=== PATIENT | female | born 1980 | race Caucasian/White ===

== ENCOUNTER 2016-12-11 21:49 | Emergency (ER) | payer OTHER ==
[2016-12-11] MEDS ORDERED: Nitrofurantoin Macrocrystals* 50 MG CAP PO ONE (21:59)
--- NOTE | 2016-12-11 21:59 | UC ---
Complaint Female HPI - HPI Summary HPI Summary: 36 year old female presents with complains of frequent urination, urgency, and burning. - History Of Current Complaint Chief Complaint: UCGU Stated Complaint: POSS UTI Time Seen by Provider: 12/11/16 21:57 - Allergies/Home Medications Allergies/Adverse Reactions: Allergies Allergy/AdvReac Type Severity Reaction Status Date / Time Loratadine [From Claritin] Allergy Hives Verified 12/11/16 21:55 Home Medications: Home Medications Bupropion XL* [Wellbutrin XL *] 150 mg PO DAILY 12/11/16 [History Confirmed ] Vitamin [Calna] 1 tab PO 12/11/16 [History] PMH/Surg Hx/FS Hx/Imm Hx - Surgical History Surgical History: None - Social History Alcohol Use: None Substance Use Type: None Smoking Status (MU): Never Smoked Tobacco Review of Systems Constitutional: Negative Skin: Negative Eyes: Negative ENT: Negative Respiratory: Negative Cardiovascular: Negative Gastrointestinal: Negative Genitourinary: Dysuria, Frequency, Urgency Motor: Negative Neurovascular: Negative Musculoskeletal: Negative Neurological: Negative Psychological: Negative All Other Systems Reviewed And Are Negative: Yes Physical Exam Triage Information Reviewed: Yes Vital Signs: Initial Vital Signs Temp 37.2 C 12/11/16 21:52 Pulse 72 12/11/16 21:52 Resp 18 12/11/16 21:52 BP 104/60 12/11/16 21:52 Pulse Ox 100 12/11/16 21:52 Eye Exam: Normal ENT Exam: Normal Dental Exam: Normal Neck exam: Normal Neck: Positive: 1 Respiratory Exam: Normal Cardiovascular Exam: Normal Abdominal Exam: Normal Musculoskeletal Exam: Normal Neurological Exam: Normal Psychological Exam: Normal Skin Exam: Normal Complaint Female Dx - Differential Dx/Diagnosis Provider Diagnoses: urinary frequency. dysuria Discharge - Discharge Plan Condition: Stable Disposition: HOME Prescriptions: Nitrofurantoin Monohyd Macro [Macrobid] 100 mg PO BID #14 cap Patient Education Materials: Urinary Tract Infection in Women (ED), Urinary Tract Infection in (ED) Referrals: Bonny Mcpherson MD [Primary Care Provider] - If Needed
[2016-12-11 22:05] VITALS: BP 104/60
== END 2016-12-11 22:13 | disposition home or self-care (01) ==
LOC: UCEAST 21:49
DX: R35.0 Frequency of micturition (principal); R30.0 Dysuria
CPT/HCPCS: 81003; 87077; 87086; 87186; 99212; A9270-GY; G0463

== ENCOUNTER 2017-01-24 20:27 | Emergency (ER) | payer OTHER ==
[2017-01-24 20:34] VITALS: BP 105/70
[2017-01-24] MEDS ORDERED: Nitrofurantoin Macrocrystals* 50 MG CAP PO ONE (21:07)
--- NOTE | 2017-01-26 17:52 | UC ---
Progress - Progress Note Progress Note: CALL PATIENT. CX (+) FOR ENTEROCOCCUS FAECALIS. CX PENDING. CONTINUE ABX. IF WORSE ER.
--- NOTE | 2017-02-04 20:35 | UC ---
Complaint Female HPI - HPI Summary HPI Summary: 36 YEAR OLD PRESENTS WITH BURNING WITH URINATION. - History Of Current Complaint Chief Complaint: UCGU Stated Complaint: UTI COMPLAINT Time Seen by Provider: 01/24/17 20:30 Hx Obtained From: Patient ?: Yes Onset/Duration: Sudden Onset Severity Initially: Moderate Severity Currently: Moderate Pain Intensity: 3 Pain Scale Used: 0-10 Numeric - 6 - Allergies/Home Medications Allergies/Adverse Reactions: Allergies Allergy/AdvReac Type Severity Reaction Status Date / Time Loratadine [From Claritin] Allergy Hives Verified 12/11/16 21:55 PMH/Surg Hx/FS Hx/Imm Hx Previously Healthy: Yes - Surgical History Surgical History: None - Social History Alcohol Use: None Substance Use Type: None Smoking Status (MU): Never Smoked Tobacco Review of Systems Constitutional: Negative Skin: Negative Eyes: Negative ENT: Negative Respiratory: Negative Cardiovascular: Negative Gastrointestinal: Negative Genitourinary: Frequency, Urgency Motor: Negative Neurovascular: Negative Musculoskeletal: Negative Neurological: Negative Psychological: Negative All Other Systems Reviewed And Are Negative: Yes Physical Exam Triage Information Reviewed: Yes Vital Signs: Initial Vital Signs Temp 37.3 C 01/24/17 20:30 Pulse 73 01/24/17 20:30 Resp 12 01/24/17 20:30 BP 105/70 01/24/17 20:30 Pulse Ox 100 01/24/17 20:30 Eye Exam: Normal ENT Exam: Normal Dental Exam: Normal Neck exam: Normal Neck: Positive: 1 Respiratory Exam: Normal Cardiovascular Exam: Normal Abdominal Exam: Normal Musculoskeletal Exam: Normal Neurological Exam: Normal Psychological Exam: Normal Skin Exam: Normal Complaint Female Dx - Differential Dx/Diagnosis Provider Diagnoses: BURNING WITH URINATION. URGENCY AND FREQUENCY OF URINATION Discharge - Discharge Plan Condition: Stable Disposition: HOME Prescriptions: Nitrofurantoin Monohyd Macro [Macrobid] 100 mg PO BID #14 cap Patient Education Materials: Urinary Tract Infection in Women (ED) Referrals: Bonny Mcpherson MD [Primary Care Provider] -
== END 2017-01-24 21:25 | disposition home or self-care (01) ==
LOC: UCEAST 20:27
DX: R30.0 Dysuria (principal); R39.15 Urgency of urination; R35.0 Frequency of micturition; Z32.01 Encounter for pregnancy test, result positive; Z88.8 Allergy status to other drugs, medicaments and biological substances
CPT/HCPCS: 81003; 84702; 87077; 87086; 87186; 99212; A9270-GY; G0463

== ENCOUNTER 2017-07-24 19:33 | Inpatient (IN) | payer OTHER ==
[2017-07-24 21:55] LABS: ABS Basophils 0.1 10^3/ul (0-0.2); ABS Eosinophils 0.1 10^3/ul (0-0.6); ABS Lymphocytes 2.6 10^3/ul (1.0-4.8); ABS Monocytes 0.9 10^3/ul (0-0.8); ABS Neutrophils 9.7 10^3/ul (1.5-7.7); ABS Nucleated RBC 0 10^3/ul; Hematocrit 43 % (35-47); Lymphocyte % 19.5 % (25-47); Mean Corpuscular HGB Conc 35 g/dl (31-36); Mean Corpuscular Hemoglobin 31 pg (27-31); Mean Corpuscular Volume 88 fL (80-97); Mean Platelet Volume 10 um3 (7.4-10.4); Nucleated Red Blood Cells % 0; Platelet Count 167 10^3/ul (150-450); Red Blood Count 4.86 10^6/ul (4.0-5.4); Red Cell Distribution Width 13 % (10.5-15); White Blood Count 13.5 10^3/ul (3.5-10.8)
[2017-07-24 22:14] LABS: EGFR Non-African American 112.3 (>60); Uric Acid 4.4 mg/dL (2.3-6.6)
[2017-07-24 22:32] LABS: Urine Appearance Clear; Urine Blood 2+ (Negative); Urine Color Straw; Urine Ketones Negative (Negative); Urine Protein Negative (Negative); Urine Specific Gravity 1.004 (1.010-1.030); Urine Urobilinogen Negative (Negative)
--- NOTE | 2017-07-24 23:49 | HP ---
General Information - General Information Maternal Age: 36 Grav: 1 Para: 0 SAB: 0 IEA: 0 Estimated Due Date: 08/08/17 Gestational Age in Weeks and Days: 37 Weeks and 6 Days Maternal Blood Type and Rh: AB Positive - Results this Serology/RPR Result: Non-Reactive Rubella Result: Immune HBsAg Result: Negative HIV Result: Negative GBS Culture Result: Negative Past Medical History Delivery History: See Records Pertinent Past Medical History: See Records Past Medical History Comment: Hx of depression currently on Wellbutrin. Hx of asthma. No current medication mgmt needed Pertinent Past Surgical History: None Pertinent Family History: See Records Family History Comment: HTN, heart disease, high cholesterol - Antepartal Records Antepartal Records: Reviewed, Uncomplicated - lives in [facility]. Pt traveled there during . Plans to return around 6-8 weeks post delivery Review of Systems Constitutional: Uncomfortable - with UCs CV Complaint: No Respiratory: Shortness of Breath: No Gastrointestinal: No Nausea/Vomiting, Normal Bowel Movement Genitourinary: Bleeding - +Bloody show for the past 2 days. Slightly more with regular UCs this AM, No Dysuria, No Leaking Fluid Musculoskeletal: Contractions Neurological: No Headache, No Visual Changes Movement: Normal Exam Allergies/Adverse Reactions: Allergies loratadine Allergy (Verified 07/24/17 23:23) Hives BP on arrival: 131/93. Repeats: 143/94 and 118/77 HR 69 Temp 98.9 RR 19 Lab Values - Entire Visit: Laboratory Tests 07/24/17 07/24/17 07/24/17 21:45 21:45 21:45 WBC 13.5 H RBC 4.86 Hgb 15.0 Hct 43 MCV 88 MCH 31 MCHC 35 RDW 13 Plt Count 167 MPV 10 Neut % (Auto) 72.1 Lymph % (Auto) 19.5 L [place] % (Auto) 6.6 Eos % (Auto) 1.0 Baso % (Auto) 0.8 Absolute Neuts (auto) 9.7 H Absolute Lymphs (auto) 2.6 Absolute Monos (auto) 0.9 H Absolute Eos (auto) 0.1 Absolute Basos (auto) 0.1 Absolute Nucleated RBC 0 Nucleated RBC % 0 Sodium 133 Potassium 3.8 Chloride 103 Carbon Dioxide 22 Anion Gap 8 BUN 9 Creatinine 0.61 Est GFR ( Amer) 144.4 Est GFR (Non-Af Amer) 112.3 BUN/Creatinine Ratio 14.8 Glucose 87 Uric Acid 4.4 Calcium 9.4 Total Bilirubin 0.40 AST 21 ALT 14 Alkaline Phosphatase 176 H Total Protein 6.9 Albumin 3.6 Globulin 3.3 Albumin/Globulin Ratio 1.1 Urine Color Urine Appearance Urine pH Ur Specific [place] Urine Protein Urine Ketones Urine Blood Urine Nitrate Urine Bilirubin Urine Urobilinogen Ur Leukocyte Esterase Urine WBC (Auto) Urine RBC (Auto) Ur Squamous Epith Cells Urine Bacteria Urine Glucose Blood Type AB Positive Antibody Screen Negative 07/24/17 22:10 WBC RBC Hgb Hct MCV MCH MCHC RDW Plt Count MPV Neut % (Auto) Lymph % (Auto) [place] % (Auto) Eos % (Auto) Baso % (Auto) Absolute Neuts (auto) Absolute Lymphs (auto) Absolute Monos (auto) Absolute Eos (auto) Absolute Basos (auto) Absolute Nucleated RBC Nucleated RBC % Sodium Potassium Chloride Carbon Dioxide Anion Gap BUN Creatinine Est GFR ( Amer) Est GFR (Non-Af Amer) BUN/Creatinine Ratio Glucose Uric Acid Calcium Total Bilirubin AST ALT Alkaline Phosphatase Total Protein Albumin Globulin Albumin/Globulin Ratio Urine Color Straw Urine Appearance Clear Urine pH 7.0 Ur Specific [place] 1.004 L Urine Protein Negative Urine Ketones Negative Urine Blood 2+ A Urine Nitrate Negative Urine Bilirubin Negative Urine Urobilinogen Negative Ur Leukocyte Esterase Negative Urine WBC (Auto) Absent Urine RBC (Auto) Absent Ur Squamous Epith Cells Present A Urine Bacteria Absent Urine Glucose Negative Blood Type Antibody Screen - Measurements Height: 5 ft 6 in Weight: 158 lb Weight in lbs: 158 Body Mass Index (BMI): 25.4 Pre- Weight: 133 lb Weight Gained This : 25 lbs and 0 ozs - Exam Abdomen: No Upper Quadrant Pain Breast: Breast Exam Deferred CVA: No CVA Tenderness Extremities: No Edema Heart: Normal Rhythm/Heart Sounds HEENT: No Significant Findings Lungs: Clear Bilaterally Rectal: Rectal Exam Deferred Reflexes: DTR 2+ Thyroid: No Thyromegaly - Cervical Exam On arrival very posterior and difficult to assess due to pt discomfort. Approx 2cm/softening/vtx 0 station. +bloody show - Abdominal Exam Abdomen Exam: Non-Tender, Fundal Height Consistent with Dates - Membranes Membrane Status: Intact - Ultrasound/Biophysical Profile Ultrasound Status: Not Done EFM Findings - External Monitor Findings Baseline Heart Rate: 145 External Monitor Findings: Accelerations Present, No Pattern of Variable or Late Decelerations, Variability Moderate, Baseline Stable External Monitor Findings Comment: No evidence of metabolic acidemia Contractions: Regular - q 3-5 min, Moderate, 45-90 Seconds Assessment/Plan - Reason for Visit Reason for Visit: IUP at 37-6/7 weeks in labor Elevated BP of unknown significance. Labs WNL - Plan Plan: Active Labor Plan Comment: Pt desires minimal intervention and few vaginal exams. Has a clay maker and close friend at the bedside for labor support. currently flying home from [facility]. Scheduled to arrive in [place] 07/25/17 at 1700. Pt's mother enroute from [facility]. Scheduled to arrive around 0100 07/25/17 - Date/Time of Admission Date of Admission: 07/24/17 Time of Admission: 22:45
[2017-07-25] MEDS ORDERED: fentaNYL* 50 MCG/ML 2 ML VIAL (100 MCG VIAL) ONE (05:38)
[2017-07-25] MEDS ORDERED: OBEPIDURAL* 250 ML EPIDURAL ONE (05:42)
[2017-07-25] MEDS ORDERED: Sodium Citrate/Citric Acid* 15 ML UDC PO PRN (06:07)
[2017-07-25] MEDS ORDERED: Phenylephrine IV* 40 MCG/ML 10 ML SYRINGE IV PUSH PRN ×2 (06:07)
[2017-07-25] MEDS ORDERED: OBEPIDURAL* 250 ML EPIDURAL SCH (07:00)
[2017-07-25] MEDS ORDERED: Oxytocin in LR* 20 UNITS/1,000 ML BAG IVPB ONE (13:07)
[2017-07-25] MEDS ORDERED: Witch Hazel PAD* JAR TOPICAL PRN (14:26)
[2017-07-25] MEDS ORDERED: Acetaminophen TAB* 325 MG PO PRN (14:26)
[2017-07-25] MEDS ORDERED: Glycerin ADULT SUPP PR PRN (14:26)
[2017-07-25] MEDS ORDERED: Oxytocin in LR* 20 UNITS/1,000 ML BAG IVPB SCH (15:00)
[2017-07-25] MEDS ORDERED: Simethicone TAB* 80 MG TAB.CHEW PO SCH (17:30)
[2017-07-25] MEDS: Ibuprofen TAB* 600 MG PO PRN ×2 (17:40→23:30)
[2017-07-25] MEDS: Docusate CAP* 100 MG PO SCH (19:58)
[2017-07-25] MEDS: BuPROPion XL* 150 MG TAB.XL PO SCH (20:49)
[2017-07-26] MEDS: Ibuprofen TAB* 600 MG PO PRN ×3 (05:39→17:54)
[2017-07-26] MEDS ORDERED: Ferrous Gluconate TAB* 324 MG TAB PO SCH (09:00)
[2017-07-26 09:27] LABS: ABS Basophils 0 10^3/ul (0-0.2); ABS Eosinophils 0.1 10^3/ul (0-0.6); ABS Lymphocytes 2.6 10^3/ul (1.0-4.8); ABS Neutrophils 13.8 10^3/ul (1.5-7.7); ABS Nucleated RBC 0 10^3/ul; Eosinophil % 0.6 % (0-6); Hematocrit 37 % (35-47); Hemoglobin 12.8 g/dl (12.0-16.0); Lymphocyte % 14.9 % (25-47); Mean Corpuscular HGB Conc 34 g/dl (31-36); Mean Corpuscular Hemoglobin 30 pg (27-31); Mean Corpuscular Volume 88 fL (80-97); Mean Platelet Volume 10 um3 (7.4-10.4); Nucleated Red Blood Cells % 0.1; Platelet Count 159 10^3/ul (150-450); Red Blood Count 4.23 10^6/ul (4.0-5.4); Red Cell Distribution Width 13 % (10.5-15); White Blood Count 17.5 10^3/ul (3.5-10.8)
[2017-07-26] MEDS: BuPROPion XL* 150 MG TAB.XL PO SCH (09:38)
[2017-07-26] MEDS: Dibucaine 1% 28.35 GM TUBE PR PRN (09:38)
[2017-07-26] MEDS: Docusate CAP* 100 MG PO SCH ×3 (09:38→21:05)
[2017-07-27] MEDS: Ibuprofen TAB* 600 MG PO PRN ×2 (01:27→08:32)
[2017-07-27] MEDS: Docusate CAP* 100 MG PO SCH (08:31)
[2017-07-27 08:34] VITALS: BP 110/74
[2017-07-27] MEDS: Dibucaine 1% 28.35 GM TUBE PR PRN (11:19)
== END 2017-07-27 11:21 | disposition home or self-care (01) | DRG 775 ==
LOC: MCHOBOUT 19:33 → MCHOB 22:46
PROVIDERS: ADMIT Midwife; ATTEND Midwife
PROC: 10E0XZZ Delivery of Products of Conception, External Approach (ICD-10-PCS; principal; 2017-07-25)
PROC: 0KQM0ZZ Repair Perineum Muscle, Open Approach (ICD-10-PCS; 2017-07-25)
PROC: 10907ZC Drainage of Amniotic Fluid, Therapeutic from Products of Conception, Via Natural or Artificial Opening (ICD-10-PCS; 2017-07-25)
DX: O60.23X1 Term delivery with preterm labor, third trimester, fetus 1 (principal); F33.9 Major depressive disorder, recurrent, unspecified; O99.344 Other mental disorders complicating childbirth; O70.1 Second degree perineal laceration during delivery; J45.909 Unspecified asthma, uncomplicated; O99.52 Diseases of the respiratory system complicating childbirth; Z3A.38 38 weeks gestation of pregnancy; Z37.0 Single live birth; Z88.8 Allergy status to other drugs, medicaments and biological substances
CPT/HCPCS: 36415; 80053; 81003; 81015; 84550; 85025; 86850; 86900; 86901; A9270-GY; J3010